=== PATIENT | male | born 1965 | race Two or more races ===

== ENCOUNTER 2024-03-26 06:40 | Day surgery (SDC) | payer MEDICAID, SELFPAY ==
--- NOTE | 2024-03-22 08:31 | EKG_ITS ---
[facility] Test Date: 2024-03-22 Pat Name: SANJU HATHAWAY Department: Room: - Gender: Male Analytics Specialist: JULIO CÉSAR : 1965 Requested By: Jc Howard Order Number: [id number] Reading MD: Jc Howard Measurements Intervals [place] Rate: 61 P: 58 FL: 159 QRS: 66 QRSD: 101 T: 44 QT: 404 QTc: 410 Interpretive Statements SINUS RHYTHM No previous ECG available for comparison /store/S0/[id number]/ecg/[id number].pdf
[2024-03-22 08:34] VITALS: BMI 25.4
[2024-03-22 09:40] LABS: Collection Type, Urine Clean Catch; Squamous Epithelial Cell,Urine 0 /hpf (0-5)
[2024-03-22 10:03] LABS: Basophils % (Auto) 0 % (0-2.5); Eosinophils # (Auto) 0.1 Thou/mm3 (0.0-0.5); Eosinophils % (Auto) 2 % (0-10); Hematocrit 47.1 % (41.0-53.0); Hemoglobin 16.1 g/dL (13.5-16.0); Immature Granulocytes % (Auto) 0 % (0-0); Immature Granulocytes Auto 0.01 Thou/mm3 (0.00-0.00); Lymphocytes # (Auto) 2.2 Thou/mm3 (1.0-4.8); Lymphocytes % (Auto) 40 % (10-50); Mean Corpuscular HGB Conc 34.2 g/dl (31.0-37.0); Mean Corpuscular Volume 88 fL (80-100); Monocytes # (Auto) 0.5 Thou/mm3 (0.0-0.8); Monocytes % (Auto) 8 % (0-12); Neutrophils # (Auto) 2.8 Thou/mm3 (1.8-7.7); Neutrophils % (Auto) 50 % (37-80); Nucleated Red Blood Cell % 0 /100 WBC (0); Platelet Count 244 Thou/mm3 (140-440); RDW Standard Deviation 39.3 fL (35.1-43.9); Red Blood Count 5.37 Miln/mm3 (4.50-5.90); White Blood Count 5.5 Thou/mm3 (3.8-10.6)
[2024-03-22 10:06] LABS: Bacteria,Urine Rare; Bilirubin,Urine Negative (Negative); Blood,Urine Negative (Negative); Clarity,Urine Clear (Clear/Hazy); Color,Urine Colorless (Lt Yel-Yel); Glucose, Urine Negative (Negative); Ketones,Urine Negative (Negative); Leukocyte Esterase,Urine Negative (Negative); Nitrite,Urine Negative (Negative); PH,Urine 7.5 (5.0-7.0); Protein,Urine Negative (Neg - Trace); RBC,Urine 2 /hpf (0-3); Specific Gravity,Urine 1.007 (1.001-1.035); Urobilinogen,Urine Negative mg/dL (0.0-1.0); WBC,Urine < 1 /hpf (0-5)
[2024-03-22 10:09] LABS: Anion Gap 6 (7-16); BUN/Creatinine Ratio 13 Ratio (12-20); Blood Urea Nitrogen 12 mg/dL (9-23); Calcium 9.8 mg/dL (8.3-10.6); Carbon Dioxide 29.6 mMol/L (20.0-31.0); Chloride 102 mMol/L (98-107); Creatinine (Component) 0.9 mg/dL (0.6-1.3); Estimated Creatinine Clearance 82.6 mL/min (>60); Glucose 101 mg/dL (74-106); Osmolality,Calculated 275 (275-295); Potassium 4.1 mMol/L (3.4-5.1); Sodium 138 mMol/L (136-145); eGFR > 60 See Note
--- NOTE | 2024-03-25 12:46 | ESHP_ITS ---
RE: SANJU HATHAWAY : 1965 DATE OF ADMISSION: 03/26/2024 HISTORY OF PRESENT ILLNESS: The patient is a 59-year-old gentleman with elevated PSA of 9.2. He has nocturia and urinary stream is weak. PREVIOUS SURGERY: Tonsillectomy and cystoscopy and biopsy done before in 2019 where the biopsy of the prostate was benign prostatic hypertrophy. SOCIAL HISTORY: Patient has four children. PAST MEDICAL HISTORY: There is no history of diabetes mellitus. No history of hypertension. ALLERGIES: NONE KNOWN. MEDICATIONS: None. PHYSICAL EXAMINATION: HEENT: Normal. NECK: Supple. LUNGS: Clear. CARDIOVASCULAR: Heart sounds are normal. ABDOMEN: Soft without any organomegaly. No guarding. No rigidity. EXTREMITIES: Normal. GENITOURINARY: Phallus is normal. Testes are down in scrotum. RECTAL: Rectal examination reveals moderately enlarged smooth prostate. IMPRESSION: 1. Prostatism. 2. Elevated PSA of 9.2 it was before 6.7, now it has gone to 9.2. PLAN: The patient is scheduled to have above procedure. Planned procedure risks and complications have been discussed with the patient. The patient understood them and agreed to proceed. DT: 11:50:28 TT: 12:44:00 Ref: [id number] - TID: [id number]
[2024-03-26] VITALS (8 sets, daily range): BP systolic 107–160; BP diastolic 68–100; PULSE 55–67; RESP 12–17; TEMP 36.2–37.1; O2SAT 96–99; BMI 24.7
--- NOTE | 2024-03-26 09:05 | SUR.PHASEII ---
0905 Patient arrived to recovery awake and alert, breathing unlabored, vital signs stable, denies pain, lung sounds clear upon auscultation, bilateral radial pulses present when palpated, report received from Dr. Mac ROMERO
--- NOTE | 2024-03-26 10:05 | SUR.PHASEII ---
9355 Patient disconnected from vital signs monitor, dressed in his clothing, voided in the restroom, IV discontinued and awaiting his ride, discharge instructions given via speaker phone to his son and patient with assistance of the telephone sign language interpreter Loretta ID#[id number]
--- NOTE | 2024-03-26 10:32 | SUR.PHASEII ---
1032 Patient meets discharge criteria from recovery, awake and alert, breathing unlabored, vital signs stable, denies pain, patient son arrived, patients left with all his belongings prior to discharge, transported via wheelchair, discharge instructions signed at car side by patient son, patient then left in a private vehicle.
--- NOTE | 2024-03-29 10:17 | ESOP_ITS ---
RE: SANJU HATHAWAY : 1965 DATE OF OPERATION: 03/26/2024 PREOPERATIVE DIAGNOSES: Prostatism, prostatic obstruction, elevated prostatic specific antigen of 9.2. POSTOPERATIVE DIAGNOSES: Prostatism, prostatic obstruction, elevated prostatic specific antigen of 9.2. PROCEDURE PERFORMED: Cystoscopy, urethral dilatation, transrectal prostatic ultrasound with ultrasound-guided prostatic needle biopsy. ANESTHESIA: Monitored anesthesia by Dr. Charles. INDICATION: The patient is a 59-year-old gentleman with elevated PSA of 9.2. He has nocturia with slowing urinary stream. Rectally, he has a moderately enlarged smooth prostate without any hard nodules. He was now scheduled to have cystoscopy, transrectal prostatic ultrasound with ultrasound-guided prostatic needle biopsy. Planned procedure, risks, and complications have been discussed with the patient and his family. They have understood them and agreed to proceed. DESCRIPTION OF PROCEDURE: After the patient was brought to the operating table under adequate monitored anesthesia and dorsal lithotomy position, parts were prepped and draped in the usual fashion. Cystoscopy was then carried out, which revealed adequate urethral meatus, normal-appearing urethra without any urethral stricture. Prostate was found to be moderately enlarged with bilobed with some median lobe enlargement. Residual urine 2 ounces yellow and clear and was sent for culture and sensitivity examination. There are no intravesical stones or tumors. Bladder mucosa was found to be moderately trabeculated. The scope was withdrawn. The urethra was dilated. The patient was then turned in left lateral position. Transrectal prostatic ultrasound was carried out. Biopsies were obtained from both lobes. Using ultrasound guidance, prostatic volume was measured at 43.9 cubic cm. The patient tolerated the entire procedure well and left the operating room in good condition. PLAN: We will wait for the biopsy report. DT: 09:16:03 TT: 16:40:00 Ref: [id number] - TID: [id number]
== END 2024-03-26 10:32 | disposition home or self-care (01) ==
PROVIDERS: PCP Family Medicine; Referring Provider Surgery; Visit Provider Surgery
PROC: (CPT 55700; principal; 2024-03-26 09:30)
PROC: 0TJB8ZZ Inspection of Bladder, Via Natural or Artificial Opening Endoscopic (ICD-10-PCS; CPT 52000; 2024-03-26 09:30)
DX: N40.1 Benign prostatic hyperplasia with lower urinary tract symptoms (principal); R97.20 Elevated prostate specific antigen [PSA]
CPT/HCPCS: 52281; 55700; 36415; 76942; 80048; 81001; 85025; 87086; 93005; A4217; A4649; J0461; J0694; J2250; J2704; J3010